=== PATIENT | female | born 1990 | race African-American/Black ===

== ENCOUNTER → 2020-03-12 | Outpatient (CLI) | payer OTHER ==
--- NOTE | 2020-03-12 16:52 | RAD ---
Exam: Ultrasound OB greater than 14 weeks Indication: Uterine size/date discrepancy Technique: Real-time grayscale and color Doppler images of the pelvis were obtained by the department assistant community manager. Comparisons: None FINDINGS: There is a single live intrauterine gestation which is in cephalic position. heart rate measured at 140 bpm. measurements as follows: BPD: 5.2 cm corresponding to 21 weeks 5 days Head circumference: 18.9 cm corresponding to 21 weeks 2 days Abdominal circumference: 16.7 cm corresponding to 21 weeks 5 days Femur length: 3.9 cm corresponding to 22 weeks 4 days Estimated weight 468 g. NERY measured at 11 cm. Placenta is anterior and has a normal appearance. Cervix measures 4.7 cm in length. IMPRESSION: Single live intrauterine gestation of 21 weeks 3 days by LMP with concordant measurements on ultrasound. Electronically signed by: Freedom Duggan MD (03/12/2020 4:49 PM) [id number]
== END | disposition home or self-care (01) ==
LOC: US 13:21
PROVIDERS: ATTEND Obstetrics & Gynecology
DX: O26.842 Uterine size-date discrepancy, second trimester (principal); Z3A.21 21 weeks gestation of pregnancy
CPT/HCPCS: 76805

== ENCOUNTER → 2020-04-27 | Outpatient (CLI) | payer OTHER ==
[2020-04-27 11:02] LABS: BASO % 0 % (0-3); EOS % 0 % (0-3); HEMATOCRIT 27.7 % (36.0-47.0); HEMOGLOBIN 9.1 g/dL (12.0-15.5); LYMPH # 1.2 x10^3/uL (1.0-4.8); LYMPH % 22 % (24-48); MEAN CORPUSCULAR HEMOGLOBIN 29 pg (25-35); MEAN CORPUSCULAR HGB CONC 33 g/dL (31-37); MEAN CORPUSCULAR VOLUME 87 fL (79-100); MONO # 0.4 x10^3/uL (0.0-1.1); MONO % 8 % (0-9); NEUT # 3.8 x10^3/uL (1.8-7.7); NEUT % 69 % (31-73); PLATELET COUNT 205 x10^3/uL (140-400); RED BLOOD COUNT 3.18 x10^6/uL (3.50-5.40); RED CELL DISTRIBUTION WIDTH 13.6 % (11.5-14.5); WHITE BLOOD COUNT 5.5 x10^3/uL (4.0-11.0)
== END | disposition home or self-care (01) ==
LOC: LAB 09:02
PROVIDERS: ATTEND Obstetrics & Gynecology
DX: O09.90 Supervision of high risk pregnancy, unspecified, unspecified trimester (principal); Z3A.00 Weeks of gestation of pregnancy not specified
CPT/HCPCS: 36415; 82950; 85025

== ENCOUNTER 2020-07-17 19:44 | Inpatient (IN) | payer OTHER ==
[~2020-07-17] VITALS: Ht 160 cm; Wt 73.9 kg
[2020-07-17 20:00] VITALS: BP 125/70
[2020-07-17] MEDS ORDERED: ACETAMINOPHEN 325 MG TABLET. PO PRN (20:00)
[2020-07-17 20:06] LABS: BILIRUBIN,URINE NEGATIVE (NEG); CLARITY,URINE CLOUDY; COLOR,URINE AMBER; NITRITE,URINE NEGATIVE (NEG); PROTEIN,URINE NEGATIVE (NEG-TRACE)
[2020-07-17 20:16] LABS: BACTERIA,URINE MODERATE /HPF (0-FEW); RBC,URINE 0 /HPF (0-2); WBC,URINE 20-40 /HPF (0-4)
[2020-07-17] MEDS ORDERED: IV RINGERS,LACTATED 1000ML 1,000 ML IV SCH (20:34)
[2020-07-17] MEDS ORDERED: BUTORPHANOL 2 MG/ML VIAL. IVP PRN (20:45)
[2020-07-17] MEDS ORDERED: IBUPROFEN 400 MG TABLET. PO PRN (20:45)
[2020-07-17] MEDS ORDERED: TERBUTALINE 1 MG/ML VIAL. SQ PRN (20:45)
[2020-07-17] MEDS ORDERED: OXYTOCIN 30 UNIT/500 ML PREMIX 500 ML IV PRN ×2 (20:45)
[2020-07-17] MEDS ORDERED: 0.9 % SODIUM CHLORIDE 10 ML DISP.SYRIN. IV PRN (20:45)
[2020-07-17] MEDS ORDERED: LIDOCAINE 1% PF 30 ML VIAL. INJ PRN (20:45)
[2020-07-17] MEDS ORDERED: ONDANSETRON PF 4 MG/2 ML VIAL. IVP PRN (20:45)
[2020-07-17] MEDS ORDERED: CITRIC ACID/SODIUM CITRATE 30 ML SOLUTION. PO PRN (20:45)
[2020-07-17] MEDS: PENICILLIN G K 2,500,000 UNIT in IV DEXTROSE 5% 50 ML IV SCH (20:57)
[2020-07-17] MEDS: IV RINGERS,LACTATED 1000ML 1,000 ML IV SCH (20:57)
[2020-07-17] MEDS ORDERED: PENICILLIN G K 5,000,000 UNIT in IV DEXTROSE 5% 100ML 100 ML IV ONE (21:00)
[2020-07-17 21:20] LABS: BASO % 0 % (0-3); EOS % 0 % (0-3); HEMATOCRIT 27.9 % (36.0-47.0); HEMOGLOBIN 8.9 g/dL (12.0-15.5); LYMPH # 1.3 x10^3/uL (1.0-4.8); LYMPH % 18 % (24-48); MEAN CORPUSCULAR HEMOGLOBIN 26 pg (25-35); MEAN CORPUSCULAR HGB CONC 32 g/dL (31-37); MEAN CORPUSCULAR VOLUME 80 fL (79-100); MONO # 0.6 x10^3/uL (0.0-1.1); MONO % 8 % (0-9); NEUT # 5.2 x10^3/uL (1.8-7.7); NEUT % 74 % (31-73); PLATELET COUNT 214 x10^3/uL (140-400); RED BLOOD COUNT 3.51 x10^6/uL (3.50-5.40); WHITE BLOOD COUNT 7.1 x10^3/uL (4.0-11.0)
[2020-07-17] MEDS ORDERED: diphenhydrAMINE HCL 25 MG CAPSULE PO PRN (23:15)
[2020-07-18] MEDS: fentaNYL PF VIAL 100 MCG/2 ML VIAL IVP PRN ×2 (00:45→02:13)
[2020-07-18] MEDS: PENICILLIN G K 2,500,000 UNIT in IV DEXTROSE 5% 50 ML IV SCH ×2 (01:19→05:22)
[2020-07-18] MEDS ORDERED: ROPIVacaine 0.2% PF 10 ML VIAL. ONE ×2 (02:18→03:00)
[2020-07-18] MEDS ORDERED: L&D EPIDURAL SYRINGE 50 ML ONE (02:18)
[2020-07-18] MEDS ORDERED: ATROPINE 0.5 MG/5 ML DISP.SYRINGE. IV PRN (03:00)
[2020-07-18] MEDS ORDERED: L&D EPIDURAL SYRINGE 50 ML EPID PRN (03:00)
[2020-07-18] MEDS ORDERED: IV RINGERS,LACTATED 1000ML 1,000 ML IV SCH (03:00)
[2020-07-18] MEDS ORDERED: NALOXONE 0.4 MG/ML VIAL. IV PRN (03:00)
[2020-07-18] MEDS ORDERED: BUPIVACAINE MPF 0.25% 30 ML VIAL. EPID PRN (03:00)
[2020-07-18] MEDS ORDERED: L&D EPIDURAL 50 ML SYRINGE. ONE (03:00)
[2020-07-18] MEDS ORDERED: fentaNYL PF VIAL 100 MCG/2 ML VIAL EPID PRN (03:00)
[2020-07-18] MEDS ORDERED: ePHEDrine PF IN SALINE 50 MG/10 ML SYRINGE. IV ONE ×2 (03:00→03:03)
[2020-07-18] MEDS ORDERED: ePHEDrine PF IN SALINE 50 MG/10 ML SYRINGE. IV PRN (03:00)
[2020-07-18] MEDS ORDERED: IV RINGERS,LACTATED 500ML 500 ML IV PRN (03:00)
[2020-07-18] MEDS ORDERED: PHENYLEPHRINE in 0.9% NACL PF 1 MG/10 ML SYRINGE. IV PRN (03:00)
[2020-07-18] MEDS ORDERED: ROPIVacaine 0.2% PF 10 ML VIAL. EPID PRN (03:00)
[2020-07-18] MEDS ORDERED: PHENYLEPHRINE in 0.9% NACL PF 1 MG/10 ML SYRINGE. IV ONE (03:04)
--- NOTE | 2020-07-18 06:17 | PDOC1 ---
OB - History Hx of Present Care: Good Care Ultrasounds: Normal mid trimester US Obstetrical Complications: None Medical Complications: None Past Family/Social History * Past Medical, Surgical, Family and Obstetric Histories reviewed from chart. Rubella: Immune RPR/VDRL: Negative GBS Status: Positive HBsAG: Negative OB - Chief Complaint & HPI Date of Admission: Date of Admission: Jul 17, 2020 at 20:30 Chief Complaint/History : 1 Para: 0 EGA: 39 Reason for admission: active labor Admission Nurse Assessment Rev: Yes OB - Admission Exam Physical Exam Vitals: VS - Last 72 Hours, by Label Date Time Temp Pulse Resp B/P (MAP) Pulse Ox O2 Delivery O2 Flow Rate FiO2 07/18/20 02:13 18 Room Air 07/18/20 00:45 18 Room Air 07/17/20 20:00 98.1 100 18 125/70 (88) 98 Room Air 98.1 HEENT: Normal Heart: Regular Rate Lungs: Clear Abdomen: Gravid, Non tender, Soft Extremities: Edema Reflexes: Normal Cervical Dilatation: 1cm Effacement: 75% Station: -3 Membranes: Intact Heart Rate: Normal Accelerations: Accelerations Present Decelerations: No decelerations Contractions on Admission: < 5 Minutes Apart Intensity: Firm Text A: 39 wks IUP GBS positive Active labor P: Admit labor management. Start Pen G prophylaxis. LYNDSAY MCKINNON Jr, MD Jul 18, 2020 06:17
--- NOTE | 2020-07-18 06:19 | PDOC ---
VAGINAL DELIVERY DATE DATE: 07/18/20 TIME: 06:18 : 1 Para: 1 EGA: 39 VAGINAL DELIVERY: VTX VACCUM ASSISTED: No PLACENTA: Spontaneous 8/9 SEX: Male WEIGHT Weight [ 2970 gm] Nuchal Cord: No Amniotic Fluid: Clear PAIN: Epidural EPISIOTOMY: No EXTENSION: Yes (fer. vaginal sidewall lacerations) REPAIRED WITH 2-0 vicryl EBL 300 ml COMPLICATIONS none CONDITION pt. stable Signs of Intrauterine Infectio: None Shoulder Dystocia: No LYNDSAY MCKINNON Jr, MD Jul 18, 2020 06:19
[2020-07-18] MEDS ORDERED: 0.9 % SODIUM CHLORIDE 10 ML DISP.SYRIN. IV PRN (06:30)
[2020-07-18] MEDS ORDERED: ZOLPIDEM 5 MG TABLET. PO PRN (06:30)
[2020-07-18] MEDS ORDERED: MAGNESIUM HYDROXIDE 2,400 MG/30 ML ORAL.SUSP. PO PRN (06:30)
[2020-07-18] MEDS ORDERED: SIMETHICONE 80 MG TAB.CHEW PO PRN (06:30)
[2020-07-18] MEDS ORDERED: HYDROCORTISONE 1% TOPICAL OINTMENT 30GM TUBE. TP PRN (06:30)
[2020-07-18] MEDS ORDERED: TDaP (Adacel) per PROTOCOL. MC PRN (06:30)
[2020-07-18] MEDS ORDERED: ACETAMINOPHEN 325 MG TABLET. PO PRN (06:30)
[2020-07-18] MEDS ORDERED: MMR per PROTOCOL. MC PRN (06:30)
[2020-07-18] MEDS ORDERED: OXYTOCIN 30 UNIT/500 ML PREMIX 500 ML IV PRN (06:30)
[2020-07-18] MEDS ORDERED: PHENYLEPH/MINERAL OIL/PETROLAT RECTAL OINTMENT TUBE. RC PRN (06:30)
[2020-07-18] MEDS ORDERED: MAG HYDROX/ALUMINUM HYD/SIMETH 30 ML ORAL.SUSP PO PRN (06:30)
[2020-07-18] MEDS ORDERED: BENZOCAINE 20% TOPICAL AEROSOL SPRAY 57GM CAN. TP PRN (06:30)
[2020-07-18] MEDS ORDERED: diphenhydrAMINE HCL 25 MG CAPSULE PO PRN (06:30)
[2020-07-18] MEDS: MULTIVITAMIN with MINERAL TABLET. PO SCH (09:00)
[2020-07-18 10:00] VITALS: BP 102/55
[2020-07-18 10:30] VITALS: BP 101/48
[2020-07-18 12:50] VITALS: BP 103/60
[2020-07-18] MEDS: IV RINGERS,LACTATED 1000ML 1,000 ML IV SCH ×3 (13:29→21:15)
[2020-07-18 16:21] VITALS: BP 90/54
[2020-07-18 20:00] VITALS: BP 111/72
[2020-07-18] MEDS: oxyCODONE/APAP 5/325 1 TAB TABLET PO PRN (20:31)
[2020-07-19] VITALS: BP 100/66
[2020-07-19] MEDS: oxyCODONE/APAP 5/325 1 TAB TABLET PO PRN ×4 (02:08→18:26)
[2020-07-19 05:00] VITALS: BP 97/58
[2020-07-19 07:31] LABS: BASO % 0 % (0-3); EOS % 0 % (0-3); HEMATOCRIT 25.4 % (36.0-47.0); HEMOGLOBIN 8.1 g/dL (12.0-15.5); LYMPH # 2.3 x10^3/uL (1.0-4.8); LYMPH % 22 % (24-48); MEAN CORPUSCULAR HEMOGLOBIN 25 pg (25-35); MEAN CORPUSCULAR HGB CONC 32 g/dL (31-37); MEAN CORPUSCULAR VOLUME 79 fL (79-100); MONO # 0.8 x10^3/uL (0.0-1.1); MONO % 8 % (0-9); NEUT # 7.4 x10^3/uL (1.8-7.7); NEUT % 70 % (31-73); PLATELET COUNT 190 x10^3/uL (140-400); RED CELL DISTRIBUTION WIDTH 16.5 % (11.5-14.5); WHITE BLOOD COUNT 10.5 x10^3/uL (4.0-11.0)
[2020-07-19] MEDS: MULTIVITAMIN with MINERAL TABLET. PO SCH (09:33)
[2020-07-19] MEDS: DOCUSATE SODIUM 100 MG CAPSULE. PO PRN (09:34)
[2020-07-19] MEDS: IBUPROFEN 400 MG TABLET. PO PRN ×2 (09:34→22:32)
[2020-07-19] MEDS: FERROUS SULFATE 325 MG TABLET. PO SCH ×2 (09:34→17:00)
--- NOTE | 2020-07-19 10:17 | PDOC ---
Date and Time Patient complaining of headache. Started soon after delivery at 0600 yesterday. Also c/o neck stiffness. Labor epidural uneventful. Denies visual changes, nausea, fever Sitting up in bed with light on in room. Patient had told RN her headache was positional but she denied that when I asked. No nuchal rigidity, afebrile I told her that this could be a dural puncture headache but it is not classic. Option of blood patch v conservative Rx discussed. I advised her to let us know if her symptoms worsen or any new ones develop, she is staying overnight tonight, we will check her tomorrow morning. Current Medications Current Medications Ringer's Solution 1,000 ml @ 125 mls/hr Q8H IV Last administered on 07/18/20at 21:15; Start 07/17/20 at 19:52 Acetaminophen (Tylenol) 1,000 mg PRN Q6HRS PRN PO PAIN, TEMP > 100.5'F; Start 07/17/20 at 20:00; Stop 07/18/20 at 09:50; Status DC Sodium Chloride (Normal Saline Flush) 3 ml QSHIFT PRN IV AFTER MEDS AND BLOOD DRAWS; Start 07/17/20 at 20:45 Ringer's Solution 1,000 ml @ 125 mls/hr Q8H IV Last administered on 07/18/20at 03:15; Start 07/17/20 at 20:34 Butorphanol Tartrate (Stadol) 2 mg PRN Q1HR PRN IVP Severe labor pain; Start 07/17/20 at 20:45 Fentanyl Citrate (Fentanyl 2ml Vial) 100 mcg PRN Q30MIN PRN IVP Severe pain Last administered on 07/18/20at 02:13; Start 07/17/20 at 20:45 Ondansetron HCl (Zofran) 4 mg PRN Q4HRS PRN IVP NAUSEA/VOMITING; Start 07/17/20 at 20:45 Citric Acid/ Sodium Citrate (Bicitra) 30 ml 1X PRN PRN PO DYSPEPSIA; Start 07/17/20 at 20:45; Stop 07/18/20 at 20:44; Status DC Terbutaline Sulfate (Brethine) 0.25 mg 1X PRN PRN SQ SEE COMMENTS; Start 07/17/20 at 20:45; Stop 07/18/20 at 20:44; Status DC Lidocaine HCl (Xylocaine 1% Pf 30ml Vial) 30 ml 1X PRN PRN INJ SEE COMMENTS; Start 07/17/20 at 20:45; Stop 07/19/20 at 20:44 Oxytocin/Sodium Chloride 500 ml @ 0 mls/hr CONT PRN IV SEE I/O RECORD; Start 07/17/20 at 20:45 Oxytocin/Sodium Chloride 500 ml @ 0 mls/hr CONT PRN PRN IV Post delivery bleeding Last administered on 07/18/20at 05:39; Start 07/17/20 at 20:45 Ibuprofen (Motrin) 800 mg PRN Q8HRS PRN PO PAIN Last administered on 07/18/20at 07:58; Start 07/17/20 at 20:45; Stop 07/18/20 at 09:52; Status DC Penicillin G Potassium 4911841 unit/Dextrose 100 ml @ 100 mls/hr 1X ONCE IV Last administered on 07/17/20at 20:57; Start 07/17/20 at 21:00; Stop 07/17/20 at 21:59; Status DC Penicillin G Potassium [id number] unit/Dextrose 50 ml @ 100 mls/hr Q4H IV Last administered on 07/18/20at 05:22; Start 07/18/20 at 01:00 Diphenhydramine HCl (Benadryl) 50 mg PRN Q6HRS PRN PO ITCHING Last administered on 07/17/20at 23:15; Start 07/17/20 at 23:15; Stop 07/18/20 at 09:51; Status DC Ropivacaine (Naropin 0.2%) 10 ml STK-MED ONCE .ROUTE ; Start 07/18/20 at 02:18; Stop 07/18/20 at 02:18; Status DC Fentanyl Citrate 50 ml @ As Directed STK-MED ONCE .ROUTE ; Start 07/18/20 at 02:18; Stop 07/18/20 at 02:18; Status DC Ephedrine Sulfate (ePHEDrine PF IN SALINE SYRINGE) 50 mg STK-MED ONCE IV ; Start 07/18/20 at 03:03; Stop 07/18/20 at 03:03; Status DC Phenylephrine HCl (PHENYLEPHRINE in 0.9% NACL PF) 1 mg STK-MED ONCE IV ; Start 07/18/20 at 03:04; Stop 07/18/20 at 03:05; Status DC Ringer's Solution 1,000 ml @ 1,000 mls/hr Q1H IV ; Start 07/18/20 at 03:00; Stop 07/18/20 at 03:59; Status DC Ringer's Solution 500 ml @ 500 mls/hr 1X PRN PRN IV HYPOTENSION; Start 07/18/20 at 03:00; Stop 07/19/20 at 02:59; Status DC Ephedrine Sulfate (ePHEDrine PF IN SALINE SYRINGE) 10 mg PRN Q2MIN PRN IV IF SBP<90; Start 07/18/20 at 03:00 Phenylephrine HCl (PHENYLEPHRINE in 0.9% NACL PF) 0.05 mg PRN Q2MIN PRN IV SBP less than 90; Start 07/18/20 at 03:00 Atropine Sulfate (ATROPINE 0.5mg SYRINGE) 0.4 mg PRN Q2MIN PRN IV FOR SYMPTOMATIC BRADYCARDIA; Start 07/18/20 at 03:00 Naloxone HCl (Narcan) 0.04 mg PRN Q1MIN PRN IV SEE COMMENTS; Start 07/18/20 at 03:00 Fentanyl Citrate (Fentanyl 2ml Vial) 100 mcg PRN 1X PRN EPID FOR ANESTHESIA; Start 07/18/20 at 03:00; Stop 07/19/20 at 02:59; Status DC Bupivacaine HCl (Sensorcaine Mpf 0.25%) 10 ml PRN 1X PRN EPID FOR ANESTHESIA; Start 07/18/20 at 03:00; Stop 07/19/20 at 02:59; Status DC Fentanyl Citrate 50 ml @ 14 mls/hr CONT PRN EPID PAIN; Start 07/18/20 at 03:00 Ropivacaine (Naropin 0.2%) 20 ml 1X PRN PRN EPID PER ANESTHESIA; Start 07/18/20 at 03:00; Stop 07/19/20 at 02:59; Status DC Sodium Chloride (Normal Saline Flush) 10 ml QSHIFT PRN IV AFTER MEDS AND BLOOD DRAWS; Start 07/18/20 at 06:30 Oxytocin/Sodium Chloride 500 ml @ 62.5 mls/hr CONT PRN IV SEE I/O RECORD; Start 07/18/20 at 06:30; Stop 07/18/20 at 14:29; Status DC Acetaminophen (Tylenol) 650 mg PRN Q6HRS PRN PO MILD PAIN / TEMP > 100.3'F; Start 07/18/20 at 06:30 Ibuprofen (Motrin) 800 mg PRN Q8HRS PRN PO INFLAMMATION/PAIN PREVENTION Last administered on 07/19/20at 09:34; Start 07/18/20 at 06:30 Docusate Sodium (Colace) 100 mg PRN BID PRN PO HARD STOOL Last administered on 07/19/20at 09:34; Start 07/18/20 at 06:30 Magnesium Hydroxide (Milk Of Magnesia) 2,400 mg PRN DAILY PRN PO CONSTIPATION; Start 07/18/20 at 06:30 Al Hydroxide/Mg Hydroxide (Mylanta Plus Xs) 30 ml PRN Q4HRS PRN PO HEARTBURN / GAS; Start 07/18/20 at 06:30 Simethicone (Gas-X) 80 mg PRN AFTMEALHC PRN PO GAS / BLOATING; Start 07/18/20 at 06:30 Diphenhydramine HCl (Benadryl) 25 mg PRN Q6HRS PRN PO ITCHING; Start 07/18/20 at 06:30 Benzocaine (Americaine) 1 spray PRN QID PRN TP TOPICAL PAIN Last administered on 07/18/20at 07:59; Start 07/18/20 at 06:30 Phenyleph/Shark Oil/Min Oil/Petrol (Preparation H) 1 palma PRN QID PRN RC RECTAL PAIN; Start 07/18/20 at 06:30 Hydrocortisone (Cortaid) 1 palma PRN QID PRN TP PERINEAL PAIN; Start 07/18/20 at 06:30 Ferrous Sulfate (Feosol) 325 mg BIDWMEALS PO Last administered on 07/19/20at 09:34; Start 07/19/20 at 08:00 Zolpidem Tartrate (Ambien) 5 mg PRN QHS PRN PO INSOMNIA, MAY REPEAT X1; Start 07/18/20 at 06:30 Info (Do NOT chart on this placeholder) 1 ea 1X PRN PRN MC SEE COMMENTS; Start 07/18/20 at 06:30 Info (Do NOT chart on this placeholder) 1 ea 1X PRN PRN MC SEE COMMENTS; Start 07/18/20 at 06:30 Oxycodone/ Acetaminophen (Percocet 5/325) 2 tab PRN Q4HRS PRN PO MODERATE PAIN, SEVERE PAIN Last administered on 07/19/20at 08:25; Start 07/18/20 at 06:30 Multivitamins (Thera M Plus) 1 tab DAILY PO Last administered on 07/19/20at 09:33; Start 07/18/20 at 09:00 Fentanyl Citrate (Lohenpjr-Fvivx-NU 3 Mcg-0.1%) 50 ml STK-MED ONCE .ROUTE ; Start 07/18/20 at 03:00; Stop 07/18/20 at 09:03; Status DC Ropivacaine (Naropin 0.2%) 10 ml STK-MED ONCE .ROUTE ; Start 07/18/20 at 03:00; Stop 07/18/20 at 09:03; Status DC Ephedrine Sulfate (ePHEDrine PF IN SALINE SYRINGE) 50 mg STK-MED ONCE IV ; Start 07/18/20 at 03:00; Stop 07/18/20 at 09:04; Status DC Pertinent Labs/Test Laboratory Tests Test 07/17/20 19:59 07/17/20 20:30 07/17/20 20:34 07/19/20 07:15 Urine Collection Type Unknown Urine Color Julianna Urine Clarity Cloudy Urine pH 7.0 (<5.0-8.0) Urine Specific [place] 1.025 (1.000-1.030) Urine Protein Negative mg/dL (NEG-TRACE) Urine Glucose (UA) Negative mg/dL (NEG) Urine Ketones (Stick) Trace mg/dL (NEG) Urine Blood Negative (NEG) Urine Nitrite Negative (NEG) Urine Bilirubin Negative (NEG) Urine Urobilinogen Dipstick 2.0 mg/dL (0.2 mg/dL) Urine Leukocyte Esterase Large (NEG) Urine RBC 0 /HPF (0-2) Urine WBC 20-40 /HPF (0-4) Urine Squamous Epithelial Cells Many /LPF Urine Bacteria Moderate /HPF (0-FEW) Urine Mucus Marked /LPF White Blood Count 7.1 x10^3/uL (4.0-11.0) 10.5 x10^3/uL (4.0-11.0) Red Blood Count 3.51 x10^6/uL (3.50-5.40) 3.20 x10^6/uL (3.50-5.40) Hemoglobin 8.9 g/dL (12.0-15.5) 8.1 g/dL (12.0-15.5) Hematocrit 27.9 % (36.0-47.0) 25.4 % (36.0-47.0) Mean Corpuscular Volume 80 fL (79-100) 79 fL (79-100) Mean Corpuscular Hemoglobin 26 pg (25-35) 25 pg (25-35) Mean Corpuscular Hemoglobin Concent 32 g/dL (31-37) 32 g/dL (31-37) Red Cell Distribution Width 16.0 % (11.5-14.5) 16.5 % (11.5-14.5) Platelet Count 214 x10^3/uL (140-400) 190 x10^3/uL (140-400) Neutrophils (%) (Auto) 74 % (31-73) 70 % (31-73) Lymphocytes (%) (Auto) 18 % (24-48) 22 % (24-48) Monocytes (%) (Auto) 8 % (0-9) 8 % (0-9) Eosinophils (%) (Auto) 0 % (0-3) 0 % (0-3) Basophils (%) (Auto) 0 % (0-3) 0 % (0-3) Neutrophils # (Auto) 5.2 x10^3/uL (1.8-7.7) 7.4 x10^3/uL (1.8-7.7) Lymphocytes # (Auto) 1.3 x10^3/uL (1.0-4.8) 2.3 x10^3/uL (1.0-4.8) Monocytes # (Auto) 0.6 x10^3/uL (0.0-1.1) 0.8 x10^3/uL (0.0-1.1) Eosinophils # (Auto) 0.0 x10^3/uL (0.0-0.7) 0.0 x10^3/uL (0.0-0.7) Basophils # (Auto) 0.0 x10^3/uL (0.0-0.2) 0.0 x10^3/uL (0.0-0.2) Treponema pallidum Antibody Nonreactive (Nonreactive) SARS-CoV-2 Antigen (Rapid) Negative (NEGATIVE) Laboratory Tests Test 07/19/20 07:15 White Blood Count 10.5 x10^3/uL (4.0-11.0) Red Blood Count 3.20 x10^6/uL (3.50-5.40) Hemoglobin 8.1 g/dL (12.0-15.5) Hematocrit 25.4 % (36.0-47.0) Mean Corpuscular Volume 79 fL (79-100) Mean Corpuscular Hemoglobin 25 pg (25-35) Mean Corpuscular Hemoglobin Concent 32 g/dL (31-37) Red Cell Distribution Width 16.5 % (11.5-14.5) Platelet Count 190 x10^3/uL (140-400) Neutrophils (%) (Auto) 70 % (31-73) Lymphocytes (%) (Auto) 22 % (24-48) Monocytes (%) (Auto) 8 % (0-9) Eosinophils (%) (Auto) 0 % (0-3) Basophils (%) (Auto) 0 % (0-3) Neutrophils # (Auto) 7.4 x10^3/uL (1.8-7.7) Lymphocytes # (Auto) 2.3 x10^3/uL (1.0-4.8) Monocytes # (Auto) 0.8 x10^3/uL (0.0-1.1) Eosinophils # (Auto) 0.0 x10^3/uL (0.0-0.7) Basophils # (Auto) 0.0 x10^3/uL (0.0-0.2) LAST VITALS Vital Signs Date Time Temp Pulse Resp B/P (MAP) Pulse Ox O2 Delivery O2 Flow Rate FiO2 07/19/20 05:00 97.9 71 18 97/58 (71) 99 Room Air 97.9 LILLY NG MD Jul 19, 2020 10:16
[2020-07-19 10:44] VITALS: BP 105/70
--- NOTE | 2020-07-19 12:56 | PDOC ---
OB Progress Note Date of Service 07/19/20 Time of Evaluation 1250 Notes Pt. reports H/A that is worse with sitting up in bed and when attempting to breast feed . She has been drinking caffeinated sodas and laying flat in bed with little improvement. Lab Laboratory Tests Test 07/17/20 19:59 07/17/20 20:30 07/17/20 20:34 07/17/20 20:45 Urine Collection Type Unknown Urine Color Julianna Urine Clarity Cloudy Urine pH 7.0 (<5.0-8.0) Urine Specific [place] 1.025 (1.000-1.030) Urine Protein Negative mg/dL (NEG-TRACE) Urine Glucose (UA) Negative mg/dL (NEG) Urine Ketones (Stick) Trace mg/dL (NEG) Urine Blood Negative (NEG) Urine Nitrite Negative (NEG) Urine Bilirubin Negative (NEG) Urine Urobilinogen Dipstick 2.0 mg/dL (0.2 mg/dL) Urine Leukocyte Esterase Large (NEG) Urine RBC 0 /HPF (0-2) Urine WBC 20-40 /HPF (0-4) Urine Squamous Epithelial Cells Many /LPF Urine Bacteria Moderate /HPF (0-FEW) Urine Mucus Marked /LPF White Blood Count 7.1 x10^3/uL (4.0-11.0) Red Blood Count 3.51 x10^6/uL (3.50-5.40) Hemoglobin 8.9 g/dL (12.0-15.5) Hematocrit 27.9 % (36.0-47.0) Mean Corpuscular Volume 80 fL (79-100) Mean Corpuscular Hemoglobin 26 pg (25-35) Mean Corpuscular Hemoglobin Concent 32 g/dL (31-37) Red Cell Distribution Width 16.0 % (11.5-14.5) Platelet Count 214 x10^3/uL (140-400) Neutrophils (%) (Auto) 74 % (31-73) Lymphocytes (%) (Auto) 18 % (24-48) Monocytes (%) (Auto) 8 % (0-9) Eosinophils (%) (Auto) 0 % (0-3) Basophils (%) (Auto) 0 % (0-3) Neutrophils # (Auto) 5.2 x10^3/uL (1.8-7.7) Lymphocytes # (Auto) 1.3 x10^3/uL (1.0-4.8) Monocytes # (Auto) 0.6 x10^3/uL (0.0-1.1) Eosinophils # (Auto) 0.0 x10^3/uL (0.0-0.7) Basophils # (Auto) 0.0 x10^3/uL (0.0-0.2) Treponema pallidum Antibody Nonreactive (Nonreactive) SARS-CoV-2 Antigen (Rapid) Negative (NEGATIVE) Coronavirus (PCR) Not detected (Not Detected) Test 07/19/20 07:15 White Blood Count 10.5 x10^3/uL (4.0-11.0) Red Blood Count 3.20 x10^6/uL (3.50-5.40) Hemoglobin 8.1 g/dL (12.0-15.5) Hematocrit 25.4 % (36.0-47.0) Mean Corpuscular Volume 79 fL (79-100) Mean Corpuscular Hemoglobin 25 pg (25-35) Mean Corpuscular Hemoglobin Concent 32 g/dL (31-37) Red Cell Distribution Width 16.5 % (11.5-14.5) Platelet Count 190 x10^3/uL (140-400) Neutrophils (%) (Auto) 70 % (31-73) Lymphocytes (%) (Auto) 22 % (24-48) Monocytes (%) (Auto) 8 % (0-9) Eosinophils (%) (Auto) 0 % (0-3) Basophils (%) (Auto) 0 % (0-3) Neutrophils # (Auto) 7.4 x10^3/uL (1.8-7.7) Lymphocytes # (Auto) 2.3 x10^3/uL (1.0-4.8) Monocytes # (Auto) 0.8 x10^3/uL (0.0-1.1) Eosinophils # (Auto) 0.0 x10^3/uL (0.0-0.7) Basophils # (Auto) 0.0 x10^3/uL (0.0-0.2) Laboratory Tests Test 07/19/20 07:15 White Blood Count 10.5 x10^3/uL (4.0-11.0) Red Blood Count 3.20 x10^6/uL (3.50-5.40) Hemoglobin 8.1 g/dL (12.0-15.5) Hematocrit 25.4 % (36.0-47.0) Mean Corpuscular Volume 79 fL (79-100) Mean Corpuscular Hemoglobin 25 pg (25-35) Mean Corpuscular Hemoglobin Concent 32 g/dL (31-37) Red Cell Distribution Width 16.5 % (11.5-14.5) Platelet Count 190 x10^3/uL (140-400) Neutrophils (%) (Auto) 70 % (31-73) Lymphocytes (%) (Auto) 22 % (24-48) Monocytes (%) (Auto) 8 % (0-9) Eosinophils (%) (Auto) 0 % (0-3) Basophils (%) (Auto) 0 % (0-3) Neutrophils # (Auto) 7.4 x10^3/uL (1.8-7.7) Lymphocytes # (Auto) 2.3 x10^3/uL (1.0-4.8) Monocytes # (Auto) 0.8 x10^3/uL (0.0-1.1) Eosinophils # (Auto) 0.0 x10^3/uL (0.0-0.7) Basophils # (Auto) 0.0 x10^3/uL (0.0-0.2) Medications Current Medications Ringer's Solution 1,000 ml @ 125 mls/hr Q8H IV Last administered on 07/18/20at 21:15; Start 07/17/20 at 19:52 Acetaminophen (Tylenol) 1,000 mg PRN Q6HRS PRN PO PAIN, TEMP > 100.5'F; Start 07/17/20 at 20:00; Stop 07/18/20 at 09:50; Status DC Sodium Chloride (Normal Saline Flush) 3 ml QSHIFT PRN IV AFTER MEDS AND BLOOD DRAWS; Start 07/17/20 at 20:45 Ringer's Solution 1,000 ml @ 125 mls/hr Q8H IV Last administered on 07/18/20at 03:15; Start 07/17/20 at 20:34 Butorphanol Tartrate (Stadol) 2 mg PRN Q1HR PRN IVP Severe labor pain; Start 07/17/20 at 20:45 Fentanyl Citrate (Fentanyl 2ml Vial) 100 mcg PRN Q30MIN PRN IVP Severe pain Last administered on 07/18/20at 02:13; Start 07/17/20 at 20:45 Ondansetron HCl (Zofran) 4 mg PRN Q4HRS PRN IVP NAUSEA/VOMITING; Start 07/17/20 at 20:45 Citric Acid/ Sodium Citrate (Bicitra) 30 ml 1X PRN PRN PO DYSPEPSIA; Start 07/17/20 at 20:45; Stop 07/18/20 at 20:44; Status DC Terbutaline Sulfate (Brethine) 0.25 mg 1X PRN PRN SQ SEE COMMENTS; Start 07/17/20 at 20:45; Stop 07/18/20 at 20:44; Status DC Lidocaine HCl (Xylocaine 1% Pf 30ml Vial) 30 ml 1X PRN PRN INJ SEE COMMENTS; Start 07/17/20 at 20:45; Stop 07/19/20 at 20:44 Oxytocin/Sodium Chloride 500 ml @ 0 mls/hr CONT PRN IV SEE I/O RECORD; Start 07/17/20 at 20:45 Oxytocin/Sodium Chloride 500 ml @ 0 mls/hr CONT PRN PRN IV Post delivery bleeding Last administered on 07/18/20at 05:39; Start 07/17/20 at 20:45 Ibuprofen (Motrin) 800 mg PRN Q8HRS PRN PO PAIN Last administered on 07/18/20at 07:58; Start 07/17/20 at 20:45; Stop 07/18/20 at 09:52; Status DC Penicillin G Potassium [id number] unit/Dextrose 100 ml @ 100 mls/hr 1X ONCE IV Last administered on 07/17/20at 20:57; Start 07/17/20 at 21:00; Stop 07/17/20 at 21:59; Status DC Penicillin G Potassium [id number] unit/Dextrose 50 ml @ 100 mls/hr Q4H IV Last administered on 07/18/20at 05:22; Start 07/18/20 at 01:00; Stop 07/19/20 at 10:10; Status DC Diphenhydramine HCl (Benadryl) 50 mg PRN Q6HRS PRN PO ITCHING Last administered on 07/17/20at 23:15; Start 07/17/20 at 23:15; Stop 07/18/20 at 09:51; Status DC Ropivacaine (Naropin 0.2%) 10 ml STK-MED ONCE .ROUTE ; Start 07/18/20 at 02:18; Stop 07/18/20 at 02:18; Status DC Fentanyl Citrate 50 ml @ As Directed STK-MED ONCE .ROUTE ; Start 07/18/20 at 02:18; Stop 07/18/20 at 02:18; Status DC Ephedrine Sulfate (ePHEDrine PF IN SALINE SYRINGE) 50 mg STK-MED ONCE IV ; Start 07/18/20 at 03:03; Stop 07/18/20 at 03:03; Status DC Phenylephrine HCl (PHENYLEPHRINE in 0.9% NACL PF) 1 mg STK-MED ONCE IV ; Start 07/18/20 at 03:04; Stop 07/18/20 at 03:05; Status DC Ringer's Solution 1,000 ml @ 1,000 mls/hr Q1H IV ; Start 07/18/20 at 03:00; Stop 07/18/20 at 03:59; Status DC Ringer's Solution 500 ml @ 500 mls/hr 1X PRN PRN IV HYPOTENSION; Start 07/18/20 at 03:00; Stop 07/19/20 at 02:59; Status DC Ephedrine Sulfate (ePHEDrine PF IN SALINE SYRINGE) 10 mg PRN Q2MIN PRN IV IF SBP<90; Start 07/18/20 at 03:00 Phenylephrine HCl (PHENYLEPHRINE in 0.9% NACL PF) 0.05 mg PRN Q2MIN PRN IV SBP less than 90; Start 07/18/20 at 03:00 Atropine Sulfate (ATROPINE 0.5mg SYRINGE) 0.4 mg PRN Q2MIN PRN IV FOR SYMPTOMATIC BRADYCARDIA; Start 07/18/20 at 03:00 Naloxone HCl (Narcan) 0.04 mg PRN Q1MIN PRN IV SEE COMMENTS; Start 07/18/20 at 03:00 Fentanyl Citrate (Fentanyl 2ml Vial) 100 mcg PRN 1X PRN EPID FOR ANESTHESIA; Start 07/18/20 at 03:00; Stop 07/19/20 at 02:59; Status DC Bupivacaine HCl (Sensorcaine Mpf 0.25%) 10 ml PRN 1X PRN EPID FOR ANESTHESIA; Start 07/18/20 at 03:00; Stop 07/19/20 at 02:59; Status DC Fentanyl Citrate 50 ml @ 14 mls/hr CONT PRN EPID PAIN; Start 07/18/20 at 03:00 Ropivacaine (Naropin 0.2%) 20 ml 1X PRN PRN EPID PER ANESTHESIA; Start 07/18/20 at 03:00; Stop 07/19/20 at 02:59; Status DC Sodium Chloride (Normal Saline Flush) 10 ml QSHIFT PRN IV AFTER MEDS AND BLOOD DRAWS; Start 07/18/20 at 06:30 Oxytocin/Sodium Chloride 500 ml @ 62.5 mls/hr CONT PRN IV SEE I/O RECORD; Start 07/18/20 at 06:30; Stop 07/18/20 at 14:29; Status DC Acetaminophen (Tylenol) 650 mg PRN Q6HRS PRN PO MILD PAIN / TEMP > 100.3'F; Start 07/18/20 at 06:30 Ibuprofen (Motrin) 800 mg PRN Q8HRS PRN PO INFLAMMATION/PAIN PREVENTION Last administered on 07/19/20at 09:34; Start 07/18/20 at 06:30 Docusate Sodium (Colace) 100 mg PRN BID PRN PO HARD STOOL Last administered on 07/19/20at 09:34; Start 07/18/20 at 06:30 Magnesium Hydroxide (Milk Of Magnesia) 2,400 mg PRN DAILY PRN PO CONSTIPATION; Start 07/18/20 at 06:30 Al Hydroxide/Mg Hydroxide (Mylanta Plus Xs) 30 ml PRN Q4HRS PRN PO HEARTBURN / GAS; Start 07/18/20 at 06:30 Simethicone (Gas-X) 80 mg PRN AFTMEALHC PRN PO GAS / BLOATING; Start 07/18/20 at 06:30 Diphenhydramine HCl (Benadryl) 25 mg PRN Q6HRS PRN PO ITCHING; Start 07/18/20 at 06:30 Benzocaine (Americaine) 1 spray PRN QID PRN TP TOPICAL PAIN Last administered on 07/18/20at 07:59; Start 07/18/20 at 06:30 Phenyleph/Shark Oil/Min Oil/Petrol (Preparation H) 1 palma PRN QID PRN RC RECTAL PAIN; Start 07/18/20 at 06:30 Hydrocortisone (Cortaid) 1 palma PRN QID PRN TP PERINEAL PAIN; Start 07/18/20 at 06:30 Ferrous Sulfate (Feosol) 325 mg BIDWMEALS PO Last administered on 07/19/20at 09:34; Start 07/19/20 at 08:00 Zolpidem Tartrate (Ambien) 5 mg PRN QHS PRN PO INSOMNIA, MAY REPEAT X1; Start 07/18/20 at 06:30 Info (Do NOT chart on this placeholder) 1 ea 1X PRN PRN MC SEE COMMENTS; Start 07/18/20 at 06:30 Info (Do NOT chart on this placeholder) 1 ea 1X PRN PRN MC SEE COMMENTS; Start 07/18/20 at 06:30 Oxycodone/ Acetaminophen (Percocet 5/325) 2 tab PRN Q4HRS PRN PO MODERATE PAIN, SEVERE PAIN Last administered on 07/19/20at 12:41; Start 07/18/20 at 06:30 Multivitamins (Thera M Plus) 1 tab DAILY PO ; Start 07/18/20 at 09:00 Fentanyl Citrate (Rdurhogi-Fdpjh-EU 3 Mcg-0.1%) 50 ml STK-MED ONCE .ROUTE ; Start 07/18/20 at 03:00; Stop 07/18/20 at 09:03; Status DC Ropivacaine (Naropin 0.2%) 10 ml STK-MED ONCE .ROUTE ; Start 07/18/20 at 03:00; Stop 07/18/20 at 09:03; Status DC Ephedrine Sulfate (ePHEDrine PF IN SALINE SYRINGE) 50 mg STK-MED ONCE IV ; Start 07/18/20 at 03:00; Stop 07/18/20 at 09:04; Status DC Exam Abd: soft, non tender, fundus firm Assessment PPD#1 s/p H/A Plan of Care: Continue current Tx, Mgmt (Anesthesia to evaluate for spinal headache.) LYNDSAY MCKINNON Jr, MD Jul 19, 2020 12:56
[2020-07-19 16:00] VITALS: BP 115/75
[2020-07-19] MEDS: CYCLOBENZAPRINE 10 MG TABLET. PO PRN (19:33)
[2020-07-19 20:00] VITALS: BP 124/70
[2020-07-20 03:40] VITALS: BP 107/70
--- NOTE | 2020-07-20 07:51 | PDOC ---
Date and Time Followup post epidural headache Symptoms have improved. Patient informed that should symptoms worsen or if new symptoms appear she is to notify Anesthesiologist hydroelectric production manager through hospital embosser operator. She remains afebrile with no nuchal rigidity. Current Medications Current Medications Ringer's Solution 1,000 ml @ 125 mls/hr Q8H IV Last administered on 07/18/20at 21:15; Start 07/17/20 at 19:52; Stop 07/19/20 at 22:19; Status DC Acetaminophen (Tylenol) 1,000 mg PRN Q6HRS PRN PO PAIN, TEMP > 100.5'F; Start 07/17/20 at 20:00; Stop 07/18/20 at 09:50; Status DC Sodium Chloride (Normal Saline Flush) 3 ml QSHIFT PRN IV AFTER MEDS AND BLOOD DRAWS; Start 07/17/20 at 20:45 Ringer's Solution 1,000 ml @ 125 mls/hr Q8H IV Last administered on 07/18/20at 03:15; Start 07/17/20 at 20:34; Stop 07/19/20 at 23:43; Status DC Butorphanol Tartrate (Stadol) 2 mg PRN Q1HR PRN IVP Severe labor pain; Start 07/17/20 at 20:45 Fentanyl Citrate (Fentanyl 2ml Vial) 100 mcg PRN Q30MIN PRN IVP Severe pain Last administered on 07/18/20at 02:13; Start 07/17/20 at 20:45 Ondansetron HCl (Zofran) 4 mg PRN Q4HRS PRN IVP NAUSEA/VOMITING Last administered on 07/19/20at 17:03; Start 07/17/20 at 20:45 Citric Acid/ Sodium Citrate (Bicitra) 30 ml 1X PRN PRN PO DYSPEPSIA; Start 07/17/20 at 20:45; Stop 07/18/20 at 20:44; Status DC Terbutaline Sulfate (Brethine) 0.25 mg 1X PRN PRN SQ SEE COMMENTS; Start 07/17/20 at 20:45; Stop 07/18/20 at 20:44; Status DC Lidocaine HCl (Xylocaine 1% Pf 30ml Vial) 30 ml 1X PRN PRN INJ SEE COMMENTS; Start 07/17/20 at 20:45; Stop 07/19/20 at 20:44; Status DC Oxytocin/Sodium Chloride 500 ml @ 0 mls/hr CONT PRN IV SEE I/O RECORD; Start 07/17/20 at 20:45 Oxytocin/Sodium Chloride 500 ml @ 0 mls/hr CONT PRN PRN IV Post delivery bleeding Last administered on 07/18/20at 05:39; Start 07/17/20 at 20:45 Ibuprofen (Motrin) 800 mg PRN Q8HRS PRN PO PAIN Last administered on 07/18/20at 07:58; Start 07/17/20 at 20:45; Stop 07/18/20 at 09:52; Status DC Penicillin G Potassium 4914540 unit/Dextrose 100 ml @ 100 mls/hr 1X ONCE IV Last administered on 07/17/20at 20:57; Start 07/17/20 at 21:00; Stop 07/17/20 at 21:59; Status DC Penicillin G Potassium [id number] unit/Dextrose 50 ml @ 100 mls/hr Q4H IV Last administered on 07/18/20at 05:22; Start 07/18/20 at 01:00; Stop 07/19/20 at 10:10; Status DC Diphenhydramine HCl (Benadryl) 50 mg PRN Q6HRS PRN PO ITCHING Last administered on 07/17/20at 23:15; Start 07/17/20 at 23:15; Stop 07/18/20 at 09:51; Status DC Ropivacaine (Naropin 0.2%) 10 ml STK-MED ONCE .ROUTE ; Start 07/18/20 at 02:18; Stop 07/18/20 at 02:18; Status DC Fentanyl Citrate 50 ml @ As Directed STK-MED ONCE .ROUTE ; Start 07/18/20 at 02:18; Stop 07/18/20 at 02:18; Status DC Ephedrine Sulfate (ePHEDrine PF IN SALINE SYRINGE) 50 mg STK-MED ONCE IV ; Start 07/18/20 at 03:03; Stop 07/18/20 at 03:03; Status DC Phenylephrine HCl (PHENYLEPHRINE in 0.9% NACL PF) 1 mg STK-MED ONCE IV ; Start 07/18/20 at 03:04; Stop 07/18/20 at 03:05; Status DC Ringer's Solution 1,000 ml @ 1,000 mls/hr Q1H IV ; Start 07/18/20 at 03:00; Stop 07/18/20 at 03:59; Status DC Ringer's Solution 500 ml @ 500 mls/hr 1X PRN PRN IV HYPOTENSION; Start 07/18/20 at 03:00; Stop 07/19/20 at 02:59; Status DC Ephedrine Sulfate (ePHEDrine PF IN SALINE SYRINGE) 10 mg PRN Q2MIN PRN IV IF SBP<90; Start 07/18/20 at 03:00 Phenylephrine HCl (PHENYLEPHRINE in 0.9% NACL PF) 0.05 mg PRN Q2MIN PRN IV SBP less than 90; Start 07/18/20 at 03:00 Atropine Sulfate (ATROPINE 0.5mg SYRINGE) 0.4 mg PRN Q2MIN PRN IV FOR SYMPTOMATIC BRADYCARDIA; Start 07/18/20 at 03:00 Naloxone HCl (Narcan) 0.04 mg PRN Q1MIN PRN IV SEE COMMENTS; Start 07/18/20 at 03:00 Fentanyl Citrate (Fentanyl 2ml Vial) 100 mcg PRN 1X PRN EPID FOR ANESTHESIA; Start 07/18/20 at 03:00; Stop 07/19/20 at 02:59; Status DC Bupivacaine HCl (Sensorcaine Mpf 0.25%) 10 ml PRN 1X PRN EPID FOR ANESTHESIA; Start 07/18/20 at 03:00; Stop 07/19/20 at 02:59; Status DC Fentanyl Citrate 50 ml @ 14 mls/hr CONT PRN EPID PAIN; Start 07/18/20 at 03:00 Ropivacaine (Naropin 0.2%) 20 ml 1X PRN PRN EPID PER ANESTHESIA; Start 07/18/20 at 03:00; Stop 07/19/20 at 02:59; Status DC Sodium Chloride (Normal Saline Flush) 10 ml QSHIFT PRN IV AFTER MEDS AND BLOOD DRAWS; Start 07/18/20 at 06:30 Oxytocin/Sodium Chloride 500 ml @ 62.5 mls/hr CONT PRN IV SEE I/O RECORD; Start 07/18/20 at 06:30; Stop 07/18/20 at 14:29; Status DC Acetaminophen (Tylenol) 650 mg PRN Q6HRS PRN PO MILD PAIN / TEMP > 100.3'F; Start 07/18/20 at 06:30 Ibuprofen (Motrin) 800 mg PRN Q8HRS PRN PO INFLAMMATION/PAIN PREVENTION Last administered on 07/19/20at 09:34; Start 07/18/20 at 06:30 Docusate Sodium (Colace) 100 mg PRN BID PRN PO HARD STOOL Last administered on 07/19/20at 09:34; Start 07/18/20 at 06:30 Magnesium Hydroxide (Milk Of Magnesia) 2,400 mg PRN DAILY PRN PO CONSTIPATION; Start 07/18/20 at 06:30 Al Hydroxide/Mg Hydroxide (Mylanta Plus Xs) 30 ml PRN Q4HRS PRN PO HEARTBURN / GAS; Start 07/18/20 at 06:30 Simethicone (Gas-X) 80 mg PRN AFTMEALHC PRN PO GAS / BLOATING; Start 07/18/20 at 06:30 Diphenhydramine HCl (Benadryl) 25 mg PRN Q6HRS PRN PO ITCHING; Start 07/18/20 at 06:30 Benzocaine (Americaine) 1 spray PRN QID PRN TP TOPICAL PAIN Last administered on 07/18/20at 07:59; Start 07/18/20 at 06:30 Phenyleph/Shark Oil/Min Oil/Petrol (Preparation H) 1 palma PRN QID PRN RC RECTAL PAIN; Start 07/18/20 at 06:30 Hydrocortisone (Cortaid) 1 palma PRN QID PRN TP PERINEAL PAIN; Start 07/18/20 at 06:30 Ferrous Sulfate (Feosol) 325 mg BIDWMEALS PO Last administered on 07/19/20at 09:34; Start 07/19/20 at 08:00 Zolpidem Tartrate (Ambien) 5 mg PRN QHS PRN PO INSOMNIA, MAY REPEAT X1; Start 07/18/20 at 06:30 Info (Do NOT chart on this placeholder) 1 ea 1X PRN PRN MC SEE COMMENTS; Start 07/18/20 at 06:30 Info (Do NOT chart on this placeholder) 1 ea 1X PRN PRN MC SEE COMMENTS; Start 07/18/20 at 06:30 Oxycodone/ Acetaminophen (Percocet 5/325) 2 tab PRN Q4HRS PRN PO MODERATE PAIN, SEVERE PAIN Last administered on 07/19/20at 18:26; Start 07/18/20 at 06:30 Multivitamins (Thera M Plus) 1 tab DAILY PO ; Start 07/18/20 at 09:00 Fentanyl Citrate (Lwyiimqx-Ucbyc-OA 3 Mcg-0.1%) 50 ml STK-MED ONCE .ROUTE ; Start 07/18/20 at 03:00; Stop 07/18/20 at 09:03; Status DC Ropivacaine (Naropin 0.2%) 10 ml STK-MED ONCE .ROUTE ; Start 07/18/20 at 03:00; Stop 07/18/20 at 09:03; Status DC Ephedrine Sulfate (ePHEDrine PF IN SALINE SYRINGE) 50 mg STK-MED ONCE IV ; Start 07/18/20 at 03:00; Stop 07/18/20 at 09:04; Status DC Cyclobenzaprine HCl (Flexeril) 10 mg PRN BID PRN PO MUSCLE SPASMS Last administered on 07/19/20at 19:33; Start 07/19/20 at 18:30 Pertinent Labs/Test Laboratory Tests Test 07/19/20 07:15 White Blood Count 10.5 x10^3/uL (4.0-11.0) Red Blood Count 3.20 x10^6/uL (3.50-5.40) Hemoglobin 8.1 g/dL (12.0-15.5) Hematocrit 25.4 % (36.0-47.0) Mean Corpuscular Volume 79 fL (79-100) Mean Corpuscular Hemoglobin 25 pg (25-35) Mean Corpuscular Hemoglobin Concent 32 g/dL (31-37) Red Cell Distribution Width 16.5 % (11.5-14.5) Platelet Count 190 x10^3/uL (140-400) Neutrophils (%) (Auto) 70 % (31-73) Lymphocytes (%) (Auto) 22 % (24-48) Monocytes (%) (Auto) 8 % (0-9) Eosinophils (%) (Auto) 0 % (0-3) Basophils (%) (Auto) 0 % (0-3) Neutrophils # (Auto) 7.4 x10^3/uL (1.8-7.7) Lymphocytes # (Auto) 2.3 x10^3/uL (1.0-4.8) Monocytes # (Auto) 0.8 x10^3/uL (0.0-1.1) Eosinophils # (Auto) 0.0 x10^3/uL (0.0-0.7) Basophils # (Auto) 0.0 x10^3/uL (0.0-0.2) LAST VITALS Vital Signs Date Time Temp Pulse Resp B/P (MAP) Pulse Ox O2 Delivery O2 Flow Rate FiO2 07/20/20 03:40 98.4 71 20 107/70 (82) Room Air 98.4 07/19/20 20:00 98 LILLY NG MD Jul 20, 2020 07:51
[2020-07-20] MEDS: FERROUS SULFATE 325 MG TABLET. PO SCH ×2 (08:00→17:00)
[2020-07-20] MEDS: DOCUSATE SODIUM 100 MG CAPSULE. PO PRN ×2 (08:07→16:37)
[2020-07-20] MEDS: IBUPROFEN 400 MG TABLET. PO PRN ×2 (08:07→16:37)
[2020-07-20] MEDS: MULTIVITAMIN with MINERAL TABLET. PO SCH ×2 (08:08→09:00)
[2020-07-20] MEDS: oxyCODONE/APAP 5/325 1 TAB TABLET PO PRN ×4 (10:39→23:08)
[2020-07-20] MEDS: CYCLOBENZAPRINE 10 MG TABLET. PO PRN (10:45)
[2020-07-20 11:20] VITALS: BP 109/77
[2020-07-20 15:20] VITALS: BP 112/74
--- NOTE | 2020-07-20 16:40 | PDOC ---
OB Progress Note Date of Service 07/20/20 Time of Evaluation 1635 Notes Pt. feeling better. She states H/A not improved much. Lab Laboratory Tests Test 07/19/20 07:15 White Blood Count 10.5 x10^3/uL (4.0-11.0) Red Blood Count 3.20 x10^6/uL (3.50-5.40) Hemoglobin 8.1 g/dL (12.0-15.5) Hematocrit 25.4 % (36.0-47.0) Mean Corpuscular Volume 79 fL (79-100) Mean Corpuscular Hemoglobin 25 pg (25-35) Mean Corpuscular Hemoglobin Concent 32 g/dL (31-37) Red Cell Distribution Width 16.5 % (11.5-14.5) Platelet Count 190 x10^3/uL (140-400) Neutrophils (%) (Auto) 70 % (31-73) Lymphocytes (%) (Auto) 22 % (24-48) Monocytes (%) (Auto) 8 % (0-9) Eosinophils (%) (Auto) 0 % (0-3) Basophils (%) (Auto) 0 % (0-3) Neutrophils # (Auto) 7.4 x10^3/uL (1.8-7.7) Lymphocytes # (Auto) 2.3 x10^3/uL (1.0-4.8) Monocytes # (Auto) 0.8 x10^3/uL (0.0-1.1) Eosinophils # (Auto) 0.0 x10^3/uL (0.0-0.7) Basophils # (Auto) 0.0 x10^3/uL (0.0-0.2) Medications Current Medications Ringer's Solution 1,000 ml @ 125 mls/hr Q8H IV Last administered on 07/18/20at 21:15; Start 07/17/20 at 19:52; Stop 07/19/20 at 22:19; Status DC Acetaminophen (Tylenol) 1,000 mg PRN Q6HRS PRN PO PAIN, TEMP > 100.5'F; Start 07/17/20 at 20:00; Stop 07/18/20 at 09:50; Status DC Sodium Chloride (Normal Saline Flush) 3 ml QSHIFT PRN IV AFTER MEDS AND BLOOD DRAWS; Start 07/17/20 at 20:45 Ringer's Solution 1,000 ml @ 125 mls/hr Q8H IV Last administered on 07/18/20at 03:15; Start 07/17/20 at 20:34; Stop 07/19/20 at 23:43; Status DC Butorphanol Tartrate (Stadol) 2 mg PRN Q1HR PRN IVP Severe labor pain; Start 07/17/20 at 20:45 Fentanyl Citrate (Fentanyl 2ml Vial) 100 mcg PRN Q30MIN PRN IVP Severe pain Last administered on 07/18/20at 02:13; Start 07/17/20 at 20:45 Ondansetron HCl (Zofran) 4 mg PRN Q4HRS PRN IVP NAUSEA/VOMITING Last administered on 07/19/20at 17:03; Start 07/17/20 at 20:45 Citric Acid/ Sodium Citrate (Bicitra) 30 ml 1X PRN PRN PO DYSPEPSIA; Start 07/17/20 at 20:45; Stop 07/18/20 at 20:44; Status DC Terbutaline Sulfate (Brethine) 0.25 mg 1X PRN PRN SQ SEE COMMENTS; Start 07/17/20 at 20:45; Stop 07/18/20 at 20:44; Status DC Lidocaine HCl (Xylocaine 1% Pf 30ml Vial) 30 ml 1X PRN PRN INJ SEE COMMENTS; Start 07/17/20 at 20:45; Stop 07/19/20 at 20:44; Status DC Oxytocin/Sodium Chloride 500 ml @ 0 mls/hr CONT PRN IV SEE I/O RECORD; Start 07/17/20 at 20:45 Oxytocin/Sodium Chloride 500 ml @ 0 mls/hr CONT PRN PRN IV Post delivery bleeding Last administered on 07/18/20at 05:39; Start 07/17/20 at 20:45 Ibuprofen (Motrin) 800 mg PRN Q8HRS PRN PO PAIN Last administered on 07/18/20at 07:58; Start 07/17/20 at 20:45; Stop 07/18/20 at 09:52; Status DC Penicillin G Potassium [id number] unit/Dextrose 100 ml @ 100 mls/hr 1X ONCE IV Last administered on 07/17/20at 20:57; Start 07/17/20 at 21:00; Stop 07/17/20 at 21:59; Status DC Penicillin G Potassium [id number] unit/Dextrose 50 ml @ 100 mls/hr Q4H IV Last administered on 07/18/20at 05:22; Start 07/18/20 at 01:00; Stop 07/19/20 at 10:10; Status DC Diphenhydramine HCl (Benadryl) 50 mg PRN Q6HRS PRN PO ITCHING Last administered on 07/17/20at 23:15; Start 07/17/20 at 23:15; Stop 07/18/20 at 09:51; Status DC Ropivacaine (Naropin 0.2%) 10 ml STK-MED ONCE .ROUTE ; Start 07/18/20 at 02:18; Stop 07/18/20 at 02:18; Status DC Fentanyl Citrate 50 ml @ As Directed STK-MED ONCE .ROUTE ; Start 07/18/20 at 02:18; Stop 07/18/20 at 02:18; Status DC Ephedrine Sulfate (ePHEDrine PF IN SALINE SYRINGE) 50 mg STK-MED ONCE IV ; Start 07/18/20 at 03:03; Stop 07/18/20 at 03:03; Status DC Phenylephrine HCl (PHENYLEPHRINE in 0.9% NACL PF) 1 mg STK-MED ONCE IV ; Start 07/18/20 at 03:04; Stop 07/18/20 at 03:05; Status DC Ringer's Solution 1,000 ml @ 1,000 mls/hr Q1H IV ; Start 07/18/20 at 03:00; Stop 07/18/20 at 03:59; Status DC Ringer's Solution 500 ml @ 500 mls/hr 1X PRN PRN IV HYPOTENSION; Start 07/18/20 at 03:00; Stop 07/19/20 at 02:59; Status DC Ephedrine Sulfate (ePHEDrine PF IN SALINE SYRINGE) 10 mg PRN Q2MIN PRN IV IF SBP<90; Start 07/18/20 at 03:00 Phenylephrine HCl (PHENYLEPHRINE in 0.9% NACL PF) 0.05 mg PRN Q2MIN PRN IV SBP less than 90; Start 07/18/20 at 03:00 Atropine Sulfate (ATROPINE 0.5mg SYRINGE) 0.4 mg PRN Q2MIN PRN IV FOR SYMPTOMATIC BRADYCARDIA; Start 07/18/20 at 03:00 Naloxone HCl (Narcan) 0.04 mg PRN Q1MIN PRN IV SEE COMMENTS; Start 07/18/20 at 03:00 Fentanyl Citrate (Fentanyl 2ml Vial) 100 mcg PRN 1X PRN EPID FOR ANESTHESIA; Start 07/18/20 at 03:00; Stop 07/19/20 at 02:59; Status DC Bupivacaine HCl (Sensorcaine Mpf 0.25%) 10 ml PRN 1X PRN EPID FOR ANESTHESIA; Start 07/18/20 at 03:00; Stop 07/19/20 at 02:59; Status DC Fentanyl Citrate 50 ml @ 14 mls/hr CONT PRN EPID PAIN; Start 07/18/20 at 03:00 Ropivacaine (Naropin 0.2%) 20 ml 1X PRN PRN EPID PER ANESTHESIA; Start 07/18/20 at 03:00; Stop 07/19/20 at 02:59; Status DC Sodium Chloride (Normal Saline Flush) 10 ml QSHIFT PRN IV AFTER MEDS AND BLOOD DRAWS; Start 07/18/20 at 06:30 Oxytocin/Sodium Chloride 500 ml @ 62.5 mls/hr CONT PRN IV SEE I/O RECORD; Start 07/18/20 at 06:30; Stop 07/18/20 at 14:29; Status DC Acetaminophen (Tylenol) 650 mg PRN Q6HRS PRN PO MILD PAIN / TEMP > 100.3'F; Start 07/18/20 at 06:30 Ibuprofen (Motrin) 800 mg PRN Q8HRS PRN PO INFLAMMATION/PAIN PREVENTION Last administered on 07/20/20at 08:07; Start 07/18/20 at 06:30 Docusate Sodium (Colace) 100 mg PRN BID PRN PO HARD STOOL Last administered on 07/20/20at 08:07; Start 07/18/20 at 06:30 Magnesium Hydroxide (Milk Of Magnesia) 2,400 mg PRN DAILY PRN PO CONSTIPATION; Start 07/18/20 at 06:30 Al Hydroxide/Mg Hydroxide (Mylanta Plus Xs) 30 ml PRN Q4HRS PRN PO HEARTBURN / GAS; Start 07/18/20 at 06:30 Simethicone (Gas-X) 80 mg PRN AFTMEALHC PRN PO GAS / BLOATING; Start 07/18/20 at 06:30 Diphenhydramine HCl (Benadryl) 25 mg PRN Q6HRS PRN PO ITCHING; Start 07/18/20 at 06:30 Benzocaine (Americaine) 1 spray PRN QID PRN TP TOPICAL PAIN Last administered on 07/18/20at 07:59; Start 07/18/20 at 06:30 Phenyleph/Shark Oil/Min Oil/Petrol (Preparation H) 1 palma PRN QID PRN RC RECTAL PAIN; Start 07/18/20 at 06:30 Hydrocortisone (Cortaid) 1 palma PRN QID PRN TP PERINEAL PAIN; Start 07/18/20 at 06:30 Ferrous Sulfate (Feosol) 325 mg BIDWMEALS PO Last administered on 07/19/20at 09:34; Start 07/19/20 at 08:00 Zolpidem Tartrate (Ambien) 5 mg PRN QHS PRN PO INSOMNIA, MAY REPEAT X1; Start 07/18/20 at 06:30 Info (Do NOT chart on this placeholder) 1 ea 1X PRN PRN MC SEE COMMENTS; Start 07/18/20 at 06:30 Info (Do NOT chart on this placeholder) 1 ea 1X PRN PRN MC SEE COMMENTS; Start 07/18/20 at 06:30 Oxycodone/ Acetaminophen (Percocet 5/325) 2 tab PRN Q4HRS PRN PO MODERATE PAIN, SEVERE PAIN Last administered on 07/20/20at 10:39; Start 07/18/20 at 06:30 Multivitamins (Thera M Plus) 1 tab DAILY PO Last administered on 07/20/20at 08:08; Start 07/18/20 at 09:00 Fentanyl Citrate (Tgzfsiyv-Bspto-BQ 3 Mcg-0.1%) 50 ml STK-MED ONCE .ROUTE ; Start 07/18/20 at 03:00; Stop 07/18/20 at 09:03; Status DC Ropivacaine (Naropin 0.2%) 10 ml STK-MED ONCE .ROUTE ; Start 07/18/20 at 03:00; Stop 07/18/20 at 09:03; Status DC Ephedrine Sulfate (ePHEDrine PF IN SALINE SYRINGE) 50 mg STK-MED ONCE IV ; Start 07/18/20 at 03:00; Stop 07/18/20 at 09:04; Status DC Cyclobenzaprine HCl (Flexeril) 10 mg PRN BID PRN PO MUSCLE SPASMS Last administered on 07/20/20at 10:45; Start 07/19/20 at 18:30 Exam Abd: soft, non tender, fundus firm Assessment PPD#2 s/p Plan of Care: Continue current Tx, Mgmt LYNDSAY MCKINNON Jr, MD Jul 20, 2020 16:40
[2020-07-20 23:10] VITALS: BP 105/54
[2020-07-21 05:00] VITALS: BP 113/69
[2020-07-21 05:15] VITALS: BP 124/70
[2020-07-21] MEDS: FERROUS SULFATE 325 MG TABLET. PO SCH (08:00)
[2020-07-21] MEDS: MULTIVITAMIN with MINERAL TABLET. PO SCH (09:00)
--- NOTE | 2020-07-21 09:14 | NUR ---
OPTOMETRIST OWNER paged and returned call, informed of probable spinal [place], order received for IVF, will be up to see Pt
--- NOTE | 2020-07-21 09:35 | NUR ---
Misael Flanagan, HAND WORKER here to see Pt, plans to proceed with blood patch
[2020-07-21] MEDS ORDERED: IV RINGERS,LACTATED 1000ML 1,000 ML IV SCH (10:00)
[2020-07-21 10:50] VITALS: BP 106/68
--- NOTE | 2020-07-21 11:16 | PDOC3 ---
OB DISCHARGE SUMMARY DATE OF ADMISSION: 07/18/20 DATE OF DISCHARGE: 07/21/20 REASON FOR ADMISSION: Onset of labor INTRAPARTUM PROCEDURES: Spontanous Vag Deliv PROCEDURES: Others (blood patch for spinal headache) DISCHARGE DIAGNOSIS: Term Delivered DISCHARGE INFORMATION: Activity (ad jamel), Diet (regular), Instructions (pelvic rest x 6 wks) HOSPITAL COURSE Term gestation delivered vaginally without complications. LYNDSAY MCKINNON Jr, MD Jul 21, 2020 11:16
[2020-07-21] MEDS ORDERED: CYCL10TA2 PO (11:18)
[2020-07-21] MEDS ORDERED: IBUP-1027 PO (11:18)
--- NOTE | 2020-07-21 11:18 | DISCH ---
DISCHARGE INSTRUCTIONS Condition on Discharge Condition on Discharge: Stable Activity After Discharge Activity Instructions for Disc: Activity as tolerated Lifting Instructions after Dis: No heavy lifting Driving Instructions after Dis: Do not drive today Diet after Discharge Diet after Discharge: Regular Contacting the DRRegulo after DC Call your doctor for: Concerns you may have Follow-Up Follow up with: Dr. Goyal in 6 wks LYNDSAY GOYAL Jr, MD Jul 21, 2020 11:18
--- NOTE | 2020-07-21 11:20 | NUR ---
Misael Flanagan, KAIN at ready to proceed with blood patch
[2020-07-21 11:30] VITALS: BP 117/73
--- NOTE | 2020-07-21 12:00 | NUR ---
Blood patch complete, Pt reports relief of LAKE, pressure in lower back, to supine position, will medicate with Ibuprofen
[2020-07-21 12:05] VITALS: BP 108/74
[2020-07-21] MEDS: IBUPROFEN 400 MG TABLET. PO PRN (12:07)
[2020-07-21] MEDS ORDERED: AMMONIA AROMATIC 15% INHALANT AMPUL. ONE (13:19)
--- NOTE | 2020-07-21 16:00 | NUR ---
Up in room, states feeling much better, wanting to take shower and discharge to home, FOB at BS
[2020-07-21 17:00] VITALS: BP 97/66
== END 2020-07-21 17:40 | disposition home or self-care (01) | DRG 807 ==
LOC: 3 SO LND 19:44 → OBSVTOIN 20:30 → 3 NORTH 07-18 10:11
PROVIDERS: ADMIT Obstetrics & Gynecology; ATTEND Obstetrics & Gynecology
PROC: 10E0XZZ Delivery of Products of Conception, External Approach (ICD-10-PCS; principal; 2020-07-18)
PROC: 3E0R3BZ Introduction of Anesthetic Agent into Spinal Canal, Percutaneous Approach (ICD-10-PCS; 2020-07-18)
PROC: 00HU33Z Insertion of Infusion Device into Spinal Canal, Percutaneous Approach (ICD-10-PCS; 2020-07-18)
PROC: 0W8NXZZ Division of Female Perineum, External Approach (ICD-10-PCS; 2020-07-18)
PROC: 0UQGXZZ Repair Vagina, External Approach (ICD-10-PCS; 2020-07-18)
DX: O99.824 Streptococcus B carrier state complicating childbirth (principal); Z37.0 Single live birth; Z3A.39 39 weeks gestation of pregnancy; O71.4 Obstetric high vaginal laceration alone; Z20.828 Contact with and (suspected) exposure to other viral communicable diseases
CPT/HCPCS: 36415; 81001; 85025; 86592; 86850; 86900; 86901; 87077; 87086; 87426; G0379; J2370; J2405; J2540; J2590; J2795; J3010; J7060; J7120; G0378; Q0163; U0003-CS

== ENCOUNTER 2020-07-24 13:56 | Emergency (ER) | payer OTHER ==
[~2020-07-24] VITALS: Ht 160 cm; Wt 70.4 kg
[~2020-07-24 13:56] MED LIST: CYCL10TA2 PO; IBUP-1027 PO
[2020-07-24] MEDS ORDERED: IV NORMAL SALINE 1000ML BAG 1,000 ML IV ONE (15:15)
--- NOTE | 2020-07-24 15:17 | PHYS DOC ---
Past Medical History Past Medical History: No Pertinent History Drug Use: None General Adult EDM: Chief Complaint: HEADACHE HPI: HPI: Patient is a 29 year old female who presents with a chief complaint of headache. Patient had a epidural for delivery 1 week ago and was discharged on Thursday after she got a blood patch for headache. Patient was feeling better until this morning and now she has a positional global throbbing headache associated with dizziness and nausea that is worse with sitting up. Review of Systems: Review of Systems: Constitutional: Denies fever or chills. [] Eyes: Denies change in visual acuity. [] HENT: Denies nasal congestion or sore throat. [] Respiratory: Denies cough or shortness of breath. [] Cardiovascular: Denies chest pain or edema. [] GI: Denies abdominal pain, vomiting, bloody stools or diarrhea. [] Patient does have nausea : Denies dysuria. [] Musculoskeletal: Denies back pain or joint pain. [] Integument: Denies rash. [] Neurologic: Complains of headache and dizziness but no focal weakness or numbness Endocrine: Denies polyuria or polydipsia. [] Lymphatic: Denies swollen glands. [] Psychiatric: Denies depression or anxiety. [] Heart Score: Risk Factors: Risk Factors: DM, Current or recent (<one month) smoker, HTN, HLP, family history of CAD, obesity. Risk Scores: Score 0 - 3: 2.5% MACE over next 6 weeks - Discharge Home Score 4 - 6: 20.3% MACE over next 6 weeks - Admit for Clinical Observation Score 7 - 10: 72.7% MACE over next 6 weeks - Early Invasive Strategies Current Medications: Current Medications Sodium Chloride 1,000 ml @ 1,000 mls/hr 1X ONCE IV Last administered on 07/24/20at 15:15; Start 07/24/20 at 15:15; Stop 07/24/20 at 16:14; Status DC Active Scripts Active Cyclobenzaprine Hcl 10 Mg Tablet 10 Mg PO PRN BID PRN Ibuprofen 400 Mg Tablet 800 Mg PO PRN Q8HRS PRN Current Medications Medications (Trade) Dose Ordered Sig/Radha Start Time Stop Time Status Last Admin Dose Admin Sodium Chloride 1,000 ml @ 1,000 mls/hr 1X ONCE 07/24/20 15:15 07/24/20 16:14 Allergies: Allergies: Allergies Coded Allergies Type Severity Reaction Last Updated Verified cashew nut Allergy Intermediate 07/19/20 Yes pineapple Allergy Intermediate 07/19/20 Yes Physical Exam: PE: Constitutional: Well developed, well nourished, no acute distress, non-toxic appearance. [] HENT: Normocephalic, atraumatic, bilateral external ears normal, no trismus nose normal. [] Eyes: PERRLA, EOMI, conjunctiva normal, no discharge. [] Neck: Normal range of motion, no tenderness, supple, no stridor. [] No meningeal signs Cardiovascular:Heart rate regular rhythm, peripheral pulses are intact cap refill is brisk Lungs & Thorax: Bilateral breath sounds clear, no respiratory distress Abdomen: Bowel sounds normal, soft, no tenderness, no masses, no pulsatile masses. [] Skin: Warm, dry, no erythema, no rash. [] Back: No tenderness, no CVA tenderness. [] Extremities: No tenderness, no cyanosis, no clubbing, ROM intact, no edema. [] Neurologic: Alert and oriented X 3, normal motor function, normal sensory function, no focal deficits noted. [] Psychologic: Affect normal, judgement normal, mood normal. [] Current Patient Data: Vital Signs: Vital Signs Date Time Temp Pulse Resp B/P (MAP) Pulse Ox O2 Delivery O2 Flow Rate FiO2 07/24/20 14:26 97.7 69 18 99 97.7 EKG: EKG: [] Radiology/Procedures: Radiology/Procedures: [] Course & Med Decision Making: Course & Med Decision Making Pertinent Labs and Imaging studies reviewed. (See chart for details) [] 29-year-old female presents with a spinal headache. Patient seen by anesthesia and a blood patch was performed. Patient reassessed after the blood patch and patient feels significantly better. Patient will be sent home and instructed to continue with her Flexeril and take anti-inflammatories and drink plenty fluids with caffeine as needed and to take Colace. Joey Disclaimer: Joey Disclaimer: This electronic medical record was generated, in whole or in part, using a voice recognition dictation system. Departure Departure Impression: Primary Impression: Spinal headache Disposition: 01 DC HOME SELF CARE/HOMELESS Condition: STABLE Referrals: NO PCP (PCP) Your ELECTRIC TRAIN DRIVER in 1 week Patient Instructions: Epidural Blood Patching in Spinal Headache, Spinal Headache Additional Instructions: EMERGENCY DEPARTMENT GENERAL DISCHARGE INSTRUCTIONS THANK YOU for coming to [facility] Emergency Department (ED) today and trusting us with your care. We trust that you had a positive experience in our Emergency Department. If you wish to speak to the department Management you can contact the nursing department chairperson at . YOUR FOLLOW UP INSTRUCTIONS ARE FOLLOWS: Do you have a private doctor? If you do not have a private doctor, please ask for a resource list of physicians or clinics that may be able to assist you with follow up care. The Emergency Physician has interpreted your x-rays. The X-ray specialist will also review them. If there is a change in the findings you will be notified in 48 hours when at all possible. A lab test or lab culture may have been done, your results will be reviewed and you will be notified if you need a change in treatment. ADDITIONAL INSTRUCTIONS AND INFORMATION Your care today has been supervised by a physician who is specially trained in emergency care. Many problems require more than one evaluation for a complete diagnosis and treatment. We recommend that you schedule your follow up appointment as recommended to ensure complete treatment of your illness or injury. If you are unable to obtain follow up care and continue to have a problem, or if your condition worsens we recommend that you return to the ED. We are not able to safely determine your condition over the phone nor are we able to give sound medical advice over the phone. For these safety reasons, if you call for medical advice we will ask you to come to the ED for further evaluation If you have any questions regarding these discharge instructions please call the ED at . SAFETY INFORMATION In the interest of safety, wellness, and injury prevention; we encourage you to wear your seatbelt, if you smoke; quit smoking, and we encourage your family to use protective helmet for bicycling and other sporting events that present an increased risk for head injury. IF YOUR SYMPTOMS WORSEN OR NEW SYMPTOMS DEVELOP, OR YOU HAVE CONCERNS ABOUT YOUR CONDITION; OR IF YOUR CONDITION WORSENS WHILE YOU ARE WAITING FOR YOUR FOLLOW UP APPOINTMENT; EITHER CONTACT YOUR PRIMARY CARE DOCTOR, THE PHYSICIAN WHOSE NAME AND NUMBER YOU WERE GIVEN, OR RETURN TO THE ED IMMEDIATELY. Scripts Docusate Sodium (COLACE) 100 Mg Capsule 1 CAP PO BID for 30 Days, #60 CAP 0 Refills Prov: TOMMY PAGE MD 07/24/20 TOMMY PAGE MD Jul 24, 2020 15:17
[2020-07-24] MEDS ORDERED: DOCU-109 PO (17:42)
[2020-07-24 19:00] VITALS: BP 125/80
--- NOTE | 2020-07-24 19:14 | PDOC ---
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 No CSF was evident with initial epidural. Headache became more classic of PDPH 3 days ago and had epidural blood patch at that time. Her headache resolved until today. Now with return of headache worse with sitting or standing, better when recumbent. We discussed clinical findings with this presentation. She likely had a dislodgment of blood from dural rent today with return of CSF leak. Most often this is due to increased lumbar strain or increased pressure from what would otherwise be normal activities of stooping, bending, lifting, etc. Patient agreed to repeat blood patch in ER. Permit obtained. Patient to left lateral decubitus position for back prep with betadine swabs x3. 5 ml of 1% LIDOCAINE AT L3-4 interspace then # 18 gauge Hustead epidural needle for entry into epidural space. LORT was used with saline on second pass, with good loss of resistance. Then 20 ml of patient own blood that had been drawn with sterile technique was injected into epidural space. Mild lumbar pressure noted by patient. Well tolerated. VS remained stable. Instructed to not do activities that cause increased lumbar strain. Will give script for stool softeners and can start muscle relaxer that had been ordered by OB doctor. She was told to really relax for next 5-7 days so clot could solidify in epidural space. Headache was improving and nearly resolved before discharge. Alex Miner MD Justifications for Admission Other Justification ALEX MINER MD Jul 24, 2020 19:14
== END 2020-07-24 19:34 | disposition home or self-care (01) ==
LOC: ER 13:56
DX: G97.1 Other reaction to spinal and lumbar puncture (principal); R42 Dizziness and giddiness; R11.0 Nausea; Y84.4 Aspiration of fluid as the cause of abnormal reaction of the patient, or of later complication, without mention of misadventure at the time of the procedure; Y92.89 Other specified places as the place of occurrence of the external cause
CPT/HCPCS: 96360; 96361; 99285; J7030

== ENCOUNTER → 2021-05-01 | Outpatient (CLI) | payer SELFPAY ==
[~2021-05-01] MED LIST changes: +DOCU-109 PO
--- NOTE | 2021-05-02 12:09 | RAD ---
EXAM: Ultrasound US OB >14 WEEKS 05/01/2021 12:21 PM INDICATION: Uterine size date discrepancy. COMPARISON: None FINDINGS: There is a single living intrauterine gestation in variable position. heart rate is [address] acenta is anterior with low-lying placenta 1.8 cm from the cervical os. The following anatomy as visualized: brain, cerebellum, cisterna magna, face, nose and li ps Cervical, thoracic, and lumbar spine, stomach, kidneys, bladder, three-vessel cord, cord ins ertion, four-chamber heart visualized. 4 extremities. Diaphragm not visualized. biometry: Biparietal diameter: 4.19 cm, 18 weeks 5 days Head circumference: 15.35 cm, 18 weeks 2 days Abdominal circumference: 14.58 cm, 19 weeks 6 days Femur length: 2.99 cm, 19 weeks 2 days HC/AC ratio: 1.05 NERY: 11.2 cm Estimated gestational age by ultrasound: 19 weeks 0 days. Estimated weight 292 g. IMPRESSION: 1. Single living intrauterine in variable position. 2. Estimated gestational age by ultrasound 19 weeks 0 days. Estimated weight 292 g. 3. Low-lying placenta, 1.8 cm and the cervical os. Recommend follow-up ultrasound. 4. No definite anatomic abnormality seen. Diaphragm not visualized, likely due to technical limitatio ns of the exam and position of fetus. Recommend attention on follow-up ultrasound. Electronically signed by: Porsche Williamson MD (05/02/2021 12:07 PM) [id number]
== END ==
LOC: US 12:03
PROVIDERS: ATTEND Obstetrics & Gynecology
DX: O44.42 Low lying placenta NOS or without hemorrhage, second trimester (principal); O26.842 Uterine size-date discrepancy, second trimester; Z3A.19 19 weeks gestation of pregnancy
CPT/HCPCS: 76805

== ENCOUNTER 2021-06-10 12:40 | Emergency (ER) | payer MEDICAID ==
[~2021-06-10] VITALS: Ht 160 cm; Wt 69.0 kg
[2021-06-10 16:57] LABS: BILIRUBIN,URINE NEGATIVE (NEG); CLARITY,URINE CLEAR; COLOR,URINE YELLOW; NITRITE,URINE NEGATIVE (NEG); PROTEIN,URINE NEGATIVE (NEG-TRACE)
[2021-06-10] MEDS ORDERED: LIDOCAINE 1%/EPI 1:100,000 20 ML VIAL. INJ ONE (17:00)
[2021-06-10 17:03] LABS: BACTERIA,URINE MODERATE /HPF (0-FEW); WBC,URINE 20-40 /HPF (0-4)
[2021-06-10 17:04] LABS: RBC,URINE 0 /HPF (0-2)
--- NOTE | 2021-06-10 17:28 | PHYS DOC ---
Past Medical History Past Medical History: No Pertinent History (SPENCER GAMBLE APRN) Past Surgical History: No Surgical History (SPENCER GAMBLE APRN) Smoking Status: Never Smoker Alcohol Use: None Drug Use: None (SPENCER GAMBLE APRN) General Adult EDM: Chief Complaint: ABSCESS HPI: HPI: Patient is a 30 year old female presents to the emergency department with chief complaint of boil on her vagina. Patient reports she it started as a small bump this past and slowly grew and now is painful. Patient denies vaginal discharge, denies STI concerns, denies increased urination, urinary pressure, blood in her urine, or urinary frequency. Patient denies abdominal pains, nausea, vomiting, diarrhea. Patient reports being 15 weeks 5 days , 2 para 1, EDC September [id number], last menstrual cycle was sometime in October. Patient denies any problems with this , denies worries about this , states she could feel the baby move is normal. Patient denies vaginal discharge or vaginal bleeding. Patient denies allergies to medications, reports taking the vitamin only at home, reports [facility] [facility]NA[facility] with Dr. Evangelista porter. Patient denies any other physical abilities to physical concerns. (SPENCER GAMBLE APRN) Review of Systems: Review of Systems: 14 body systems of review of systems have been reviewed. See HPI for pertinent positives and negative responses, otherwise all other systems are negative, nonpertinent or noncontributory. Constitutional: Negative except as outlined in HPI above. Skin: Negative except as outlined in HPI above. Eyes: Negative except as outlined in HPI above. HENT: Negative except as outlined in HPI above. Respiratory: Negative except as outlined in HPI above. Cardiovascular: Negative except as outlined in HPI above. GI: Negative except as outlined in HPI above. : Negative except as outlined in HPI above. Musculoskeletal: Negative except as outlined in HPI above. Integument: Negative except as outlined in HPI above. Neurologic: Negative except as outlined in HPI above. Endocrine: Negative except as outlined in HPI above. Lymphatic: Negative except as outlined in HPI above. Psychiatric: Negative except as outlined in HPI above. (SPENCER GAMBLE APRN) Heart Score: C/O Chest Pain: No Risk Factors: Risk Factors: DM, Current or recent (<one month) smoker, HTN, HLP, family history of CAD, obesity. Risk Scores: Score 0 - 3: 2.5% MACE over next 6 weeks - Discharge Home Score 4 - 6: 20.3% MACE over next 6 weeks - Admit for Clinical Observation Score 7 - 10: 72.7% MACE over next 6 weeks - Early Invasive Strategies (SPENCER GAMBLE APRN) Current Medications: Current Medications Medications (Trade) Dose Ordered Sig/Radha Start Time Stop Time Status Last Admin Dose Admin Lidocaine/ Epinephrine (LIDOCAINE 1%-EPI 1:100,000 Multi-Dose) 20 ml 1X ONCE 06/10/21 17:00 06/10/21 17:01 DC 06/10/21 16:53 20 ML (SPENCER GAMBLE APRN) Allergies: Allergies: Allergies Coded Allergies Type Severity Reaction Last Updated Verified cashew nut Allergy Intermediate 07/19/20 Yes pineapple Allergy Intermediate 07/19/20 Yes (SPENCER GAMBLE APRN) Physical Exam: PE: Constitutional: Well developed, well nourished, no acute distress, non-toxic appearance. 30-year-old female in no apparent distress. HENT: Normocephalic, atraumatic. Eyes: Conjunctiva normal, no discharge. Neck: Normal range of motion. Cardiovascular: Distal cap refill less than 2 seconds, no cyanosis appreciated. Lungs & Thorax: Patient is in no respiratory distress, no adventitious lung sounds appreciated. Abdomen: Bowel sounds normal, soft, no tenderness, no masses, no pulsatile masses. No bruising or skin discoloration of the abdomen. Fundus 5 cm above umbilicus. movement appreciated during abdominal exam. Skin: Warm, dry, no erythema, no rash. Back: No tenderness, no CVA tenderness. Extremities: No tenderness, no cyanosis, no clubbing, ROM intact, no edema. Neurologic: Alert and oriented X 3, normal motor function, normal sensory function, no focal deficits noted. Psychologic: Affect normal, judgement normal, mood normal. : With female ED nurse at bedside for blind lacer, patient placed in pelvic bed, pelvic stirrups, external examination reveals edematous right vulva with swelling caudal aspect with central punctum. No rashes or lesions to the vaginal skin surfaces or structures. No discharge appreciated. heart tones 144 per Doppler left lower quadrant. (SPENCER GAMBLE APRN) Current Patient Data: Labs: Laboratory Tests Test 06/10/21 16:46 Urine Collection Type Unknown Urine Color Yellow Urine Clarity Clear Urine pH 7.0 (<5.0-8.0) Urine Specific Henderson 1.010 (1.000-1.030) Urine Protein Negative mg/dL (NEG-TRACE) Urine Glucose (UA) Negative mg/dL (NEG) Urine Ketones (Stick) 15 mg/dL (NEG) Urine Blood Negative (NEG) Urine Nitrite Negative (NEG) Urine Bilirubin Negative (NEG) Urine Urobilinogen Dipstick 1.0 mg/dL (0.2 mg/dL) Urine Leukocyte Esterase Moderate (NEG) Urine RBC 0 /HPF (0-2) Urine WBC 20-40 /HPF (0-4) Urine Squamous Epithelial Cells Mod /LPF Urine Bacteria Moderate /HPF (0-FEW) Vital Signs: Vital Signs Date Time Temp Pulse Resp B/P (MAP) Pulse Ox O2 Delivery O2 Flow Rate FiO2 06/10/21 17:04 92 17 113/61 (78) 99 Room Air 06/10/21 14:30 98.7 98.7 (SPENCER GAMBLE APRN) EKG: EKG: [] (SPENCER GAMBLE APRN) Radiology/Procedures: Radiology/Procedures: [] (SPENCER GAMBLE APRN) Course & Med Decision Making: Course & Med Decision Making Pertinent Labs and Imaging studies reviewed. (See chart for details) 30-year-old female, vital signs reviewed, presents emergency department complaining of a boil to her vagina on the right side. Physical examination concerning for bartholian cyst versus abscess. Will obtain urinalysis assay, I&D bartholian area of swelling with plan to place a Word catheter, obtain heart tones, see I&D note. Discussed with patient work catheter placement, antibiotic regimen for urinary tract infection, follow-up with [employer] MANAGER this Thursday, please keep appointment, patient is amenable to ED discharge planning. Discussed with the patient all findings and diagnostic testing as well as the need to follow-up with their primary care provider for further evaluation and treatment or return to the ED if any new or worsening symptoms. Strict return precautions were also discussed at length, the patient voiced understanding and agreement with the discharge planning. The patient was nontoxic in appearance, in no apparent distress, and hemodynamically stable at the time of disposition. (SPENCER GAMBLE APRN) Dragon Disclaimer: Dragon Disclaimer: This electronic medical record was generated, in whole or in part, using a voice recognition dictation system. (SPENCRE GAMBLE APRN) Incision and Drainage Time: 1700 Confirmed : Patient, procedure, side, and site correct. Consent: Patient has given verbal consent for incision and drainage of labial/bartholian abscess.. Indication: Bartholian abscess/cyst Performed by: Spencer Campbell WARDROBE ATTENDANT-C Supervision: Dr. Meeks was present in the emergency department for any critical aspects of the procedure including incision and post procedure exam. Preprocedure exam: Circulation, motor, and sensory intact. Procedural sedation: None. Description Location: Right labia Anesthesia: 1 cc 1% lidocaine with epinephrine Preparation: Sterile field established, skin prepped with Betadine skin prep. Procedure The patient was positioned appropriately. An incision was then made over the abscess using a #11 blade scalpel. Technique: A fluid collection was manually decompressed, wound probed, loculations decompressed . Drainage : 10 cc amount of purulent, bloody, serosanguineous expressed, culture sent to lab for C&S study. Post procedure exam : Circulation, motor, sensory examination intact. Patient tolerated : Well. Complications: No complications, Word catheter was placed to maintain opening.. Follow-up: Home care instructions given. Total time: 15 minutes. (SPENCER GAMBLE APRN) Departure Departure Impression: Primary Impression: Abscess of right Bartholin's gland Additional Impression: Urinary tract infection during Qualified Codes: O23.43 - Unspecified infection of urinary tract in , third trimester Disposition: HOME / SELF CARE / HOMELESS Condition: GOOD Referrals: NO PCP (PCP) Patient Instructions: Bartholin's Cyst and Abscess-Brief, Urinary Tract Infection Additional Instructions: You were seen today in the emergency department for a cyst to your bartholian gland of your vagina on the right side. This required an incision and drainage. A Word catheter was placed, please keep clean and dry as you would normally with normal care of your vaginal area. Please follow-up with your D[employer]ITAL COMMUNITY MANAGER this Thursday with your appointment and let him know that the Word catheter is in place. You also have a urinary tract infection, therefore I am starting you on an antibiotic that you will take 3 times a day for the next 7 days. Please take as directed until complete. Please return to the emergency department for worsening symptoms or other concerns. Thank you for visiting our Emergency Department. It was a pleasure taking care of you today in the emergency department and we appreciate you trusting us with your care. If any additional problems come up don't hesitate to return to visit us. Please follow up with your primary care provider so they can plan additional care if needed and know about the problem that you had. If symptoms worsen come back to the Emergency Department. Any concerning symptoms that start such as chest pain, shortness of air, weakness or numbness on one side of the body, running high fevers or any other concerning symptoms return to the ER. EMERGENCY DEPARTMENT GENERAL DISCHARGE INSTRUCTIONS Thank you for coming to [facility] Emergency Department (ED) today and trusting us with you care. We trust that you had a positive experience in our Emergency Department. If you wish to speak to the department management, you may call the Director at [phone]. YOUR FOLLOW UP INSTRUCTIONS ARE FOLLOWS: 1. Do you have a private Doctor? If you do not have a private doctor, please a sk for a resource list of physicians or clinics that may be able to assist you with follow up care. 2. The Emergency Physicain has interpreted your x-rays. The X-Ray specialist will also review them. If there is a change in the findings, you will be notified in 48 hours when at all possible. 3. A lab test or culture has been done, your results will be reviewed and you will be notified if you need a change in treatment. ADDITIONAL INSTRUCTIONS AND INFORMATION: 1. Your care today has been supervised by a physician who is specially trained in emergency care. Many problems require more than one evaluation for a complete diagnosis and treatment. We recommend that you schedule your follow up appointment as recommended to ensure complete treatment of you illness or injury. If you are unable to obtain follow up care and continue to have a problem, or if your condition worsens, we recommend that you return to the ED. 2. We are not able to safely determine your condition over the phone nor are we able to give sound medical advice over the phone. For these safety reasons, if you call for medical advice we will ask you to come to the ED for further evaluation. 3. If you have any questions regarding these discharge instructions please call the ED at [phone]. SAFETY INFORMATION: In the interest of safety, wellness, and injury prevention; we encourage you to wear your sealbelt, if you smoke; quite smoking, and we encourage family to use a protective helmet for bicycling and other sporting events that present an increased risk for head injury. IF YOUR SYMPTOMS WORSEN OR NEW SYMPTOMS DEVELOP, OR YOU HAVE CONCERNS ABOUT YOUR CONDITION; OR IF YOUR CONDITION WORSENS WHILE YOU ARE WAITING FOR YOUR FOLLOW UP APPOINTMENT; EITHER CONTACT YOUR PRIMARY CARE DOCTOR, THE PHYSICIAN WHOSE NAME AND NUMBER YOU WERE GIVEN, OR RETURN TO THE ED IMMEDIATELY. Scripts Cephalexin (CEPHALEXIN) 500 Mg Tablet 1 TAB PO TID for UTI for 7 Days, #21 TAB 0 Refills Prov: SPENCER GAMBLE APRN 06/10/21 Attending Signature Attending Signature I have reviewed the PA/WARDROBE ATTENDANT's note and plan of care. I was available for consultation as needed during the patient's visit in the emergency department. I agree with the clinical impression, plan, and disposition. (SPENCER MEEKS DO) SPENCER GAMBLE APRN Jun 10, 2021 17:28 SPENCER MEEKS DO Jun 11, 2021 14:52
[2021-06-10] MEDS ORDERED: CEPH500T PO (18:03)
[2021-06-10 18:30] VITALS: BP 134/67
== END 2021-06-10 18:44 | disposition home or self-care (01) ==
LOC: ER 12:40
DX: O23.42 Unspecified infection of urinary tract in pregnancy, second trimester (principal); O23.592 Infection of other part of genital tract in pregnancy, second trimester; Z3A.15 15 weeks gestation of pregnancy
CPT/HCPCS: 56420; 81001; 87077; 87086; 99285; J3490

== ENCOUNTER → 2021-07-02 | Outpatient (CLI) | payer MEDICAID ==
[2021-06-10 18:30] VITALS: BP 134/67
[~2021-07-02] MED LIST changes: +CEPH500T PO
--- NOTE | 2021-07-03 09:07 | RAD ---
EXAM: US OB Limited CLINICAL HISTORY: Follow-up low-lying placenta. COMPARISON: 05/01/2021 TECHNIQUE: Limited transabdominal ultrasound of the uterus was performed. FINDINGS: NUMBER: Single POSITION: Vertex PLACENTA: Location: Anterior and clear from the cervical os Placentation: Normal. Cord insertion: Normal. Cord type: 3 vessel cord. ANATOMY: HEART RATE: 121 COMMENTS: None MATERNAL ANATOMY CERVIX Length (cm): 4.5 UTERUS: No abnormalities seen. Placenta appears normal without appreciable hemorrhage. OVARIES/ADNEXAE: No masses seen. CUL-DE-SAC: No fluid. IMPRESSION: 1. Single live intrauterine gestation in vertex position with heart rate 121 bpm. 2. Anterior placenta, no longer low-lying. Electronically signed by: Shawn Weber MD (07/03/2021 9:05 AM) [id number]
== END ==
LOC: US 12:08
PROVIDERS: ATTEND Obstetrics & Gynecology
DX: O44.40 Low lying placenta NOS or without hemorrhage, unspecified trimester (principal)
CPT/HCPCS: 76815